=== PATIENT | male | born 1985 | race American Indian/Alaskan Native ===

== ENCOUNTER 2017-05-01 22:59 | Emergency (ER) | payer BC ==
[2017-05-02] MEDS ORDERED: MOTRIN PO ONE (02:34)
[2017-05-02] MEDS ORDERED: TYLENOL #3 PO ONE (02:34)
--- NOTE | 2017-05-02 02:35 | Emergency Department Report ---
ED Lower Extremity HPI - General Chief Complaint: Extremity Injury, Lower Stated Complaint: L BROKEN FOOT Time Seen by Provider: 05/02/17 01:55 Source: patient, RN notes reviewed Mode of arrival: Wheelchair Limitations: No Limitations - History of Present Illness Initial Comments: This is a 32-year-old male who was previously unknown to me, who presents to the ER with left foot injury after a palate crushed his foot. No other injuries. No other complaints. Mild numbness. Pain is sharp, increases with palpation and range of motion, decreases with rest. No other injuries. No other complaints. MD Complaint: foot injury -: Sudden Injury: Foot: Left Type of Injury: blunt Place: work Severity: moderate Improves With: rest Worsens With: movement, palpation Context: direct blow Associated Symptoms: swelling, numbness - Related Data Previous Rx's Medication Instructions Recorded Last Taken Type Ibuprofen [Motrin] 600 mg PO Q8H PRN #30 tablet 05/02/17 Unknown Rx oxyCODONE [Roxicodone] 5 mg PO Q6HR PRN #15 tablet 05/02/17 Unknown Rx Allergies Allergy/AdvReac Type Severity Reaction Status Date / Time No Known Allergies Allergy Verified 05/01/17 23:16 ED Review of Systems ROS: Stated complaint: L BROKEN FOOT Other details as noted in HPI Comment: All other systems reviewed and negative ED Past Medical Hx - Past Medical History Previous Medical History?: No - Surgical History Past Surgical History?: No - Social History Smoking Status: Current Every Day Smoker Substance Use Type: Alcohol - Medications Home Medications: Home Medications Medication Instructions Recorded Confirmed Last Taken Type Ibuprofen [Motrin] 600 mg PO Q8H PRN #30 tablet 05/02/17 Unknown Rx oxyCODONE [Roxicodone] 5 mg PO Q6HR PRN #15 tablet 05/02/17 Unknown Rx ED Physical Exam - General Limitations: Physical Limitation General appearance: alert, in no apparent distress - Head Head exam: Present: atraumatic, normocephalic - Eye Eye exam: Present: normal appearance, EOMI. Absent: nystagmus - ENT ENT exam: Present: normal exam, normal orophraynx, mucous membranes moist, normal external ear exam - Neck Neck exam: Present: normal inspection, full ROM. Absent: tenderness, meningismus - Respiratory Respiratory exam: Present: normal lung sounds bilaterally. Absent: respiratory distress, chest wall tenderness - Cardiovascular Cardiovascular Exam: Present: regular rate, normal rhythm, normal heart sounds. Absent: systolic murmur, diastolic murmur, rubs, gallop - GI/Abdominal GI/Abdominal exam: Present: soft, normal bowel sounds. Absent: distended, tenderness, guarding, rebound, rigid - Rectal Rectal exam: Present: deferred - Extremities Exam Extremities exam: Present: tenderness, normal capillary refill, joint swelling, other (2+ pulses noted in the bilateral upper extremities and the right lower extremity. Sensation intact to light touch and pain in the bilateral lower extremities. The left foot is swollen and tender on the dorsal/medial/plantar aspect. There is no pain with passive range of motion of the great toe. The compartments are soft. Posterior tibial pulses appreciated in the left lower extremity, and pulses are appreciated to Doppler interrogation on the left lower extremity/dorsalis pedis distribution.). Absent: pedal edema, calf tenderness - Back Exam Back exam: Present: normal inspection, full ROM. Absent: tenderness, CVA tenderness (R), CVA tenderness (L), muscle spasm, paraspinal tenderness, vertebral tenderness - Neurological Exam Neurological exam: Present: alert, oriented X3, other (Extraocular movements intact. Tongue midline. No facial droop. Facial sensation intact to light touch in the V1, V2, V3 distribution bilaterally. 5 and 5 strength in 4 extremities.. Sensation is intact to light touch in 4 extremities.). Absent: motor sensory deficit - Psychiatric Psychiatric exam: Present: normal affect, normal mood - Skin Skin exam: Present: warm, dry, intact, normal color. Absent: rash ED Course Vital Signs 05/01/17 23:16 Temperature 97.7 F Pulse Rate 56 L Respiratory 18 Rate Blood Pressure 136/78 O2 Sat by Pulse 99 Oximetry ED Lower Extremity MDM - Lab Data Vital Signs 05/01/17 23:16 Temperature 97.7 F Pulse Rate 56 L Respiratory 18 Rate Blood Pressure 136/78 O2 Sat by Pulse 99 Oximetry - Radiology Data Radiology results: image reviewed interpreted by me: X-ray of the left foot demonstrates first metatarsal midshaft fracture, soft tissue swelling. - Medical Decision Making Differential diagnosis: Metatarsal fracture, soft tissue swelling, fracture, dislocation S1 and plan: 32-year-old male status post crush injury to left foot. He is afebrile, with reassuring vital signs, he is appropriate pulses and neurovascular integrity, sensation intact to light touch and pinprick, and there is no pain with passive range of motion, highly doubt compartment syndrome. Patient will be placed nonweightbearing, given a hard sole shoe, instructed to follow-up with Worker's Compensation, as well as podiatry/ orthopedics. Return precautions are reviewed. Critical care attestation.: If time is entered above; I have spent that time in minutes in the direct care of this critically ill patient, excluding procedure time. ED Disposition Clinical Impression: Left foot pain Disposition: DC-01 TO HOME OR SELFCARE Is pt being admited?: No Does the pt Need Aspirin: No Condition: Stable Instructions: Foot Fracture in Adults (ED) Additional Instructions: Follow up with the furnace cleaner, or foot and ankle orthopedist within the next 5 days. Rest and avoid heavy lifting, avoid weight bearing on the left lower extremity. Take the pain medication as directed. Return to the ER right away with new pain , worsened pain, migration of pain, fevers, chills, weakness, numbness, inability to range the left lower extremity, makes and to follow-up with Worker' s Compensation as well. When taking the oxycodone medication, do not drive, consume alcohol, or make important decisions. Referrals: PRIMARY CARE, [Primary Care Provider] - 3-5 Days KARY DICKEY DPM [Staff Physician] - 3-5 Days SHIMA WORTHINGTON MD [Staff Physician] - 3-5 Days
[2017-05-02 04:13] VITALS: BP 130/78
--- NOTE | 2017-05-02 07:48 | XRay Report ---
LEFT FOOT, 2 views: History: Left foot pain. A transverse mildly displaced fracture through the midshaft of the left first metatarsal is identified. Medial displacement of the distal fragment measures 6 mm. No calcified callus. The remaining bony structures are intact and unremarkable. No significant joint pathology. Diffuse soft tissue swelling. IMPRESSION: Traumatic fracture, left first metatarsal.
== END 2017-05-02 04:15 | disposition home or self-care (01) ==
LOC: ED 22:59
DX: S99.922A Unspecified injury of left foot, initial encounter (principal); M79.672 Pain in left foot; F17.200 Nicotine dependence, unspecified, uncomplicated; X58.XXXA Exposure to other specified factors, initial encounter; Y93.9 Activity, unspecified; Y92.89 Other specified places as the place of occurrence of the external cause; Y99.9 Unspecified external cause status